=== PATIENT | male | born 1935 | race Hispanic/Latino ===

== ENCOUNTER → 2017-05-20 | Outpatient (CLI) | payer OTHER ==
[~2017-05-20] MED LIST: AEC81 PO; ALBU2.5V2 IH; INSU100V12 SQ; LISI-617 PO; LISI40TA4 PO; METF500T6 PO; NAPR-1023 PO; PANT40TA PO; PRED10TA3 PO; REGADENOSON 0.4 MG/5 ML PF SYG IVP SCH; SIMV20TA6 PO; WARF-57 PO
== END | disposition home or self-care (01) ==
LOC: SHCH 08:20
PROVIDERS: ATTEND Internal Medicine Cardiovascular Disease
DX: I48.0 Paroxysmal atrial fibrillation (principal)
CPT/HCPCS: 78452; 93017; 96374; A9500 ×2; J2785

== ENCOUNTER 2019-01-22 13:42 | Observation (INO) | payer OTHER ==
[~2019-01-22] VITALS: Ht 154.9 cm; Wt 74.1 kg
[~2019-01-22 13:42] MED LIST changes: -AEC81 PO; -ALBU2.5V2 IH; +LEVO500T2 PO; +LEVO50TA11 PO; -LISI40TA4 PO; +METF-444 PO; -METF500T6 PO; +METH4TAB3 PO; -NAPR-1023 PO; -PANT40TA PO; -PRED10TA3 PO; -REGADENOSON 0.4 MG/5 ML PF SYG IVP SCH; -WARF-57 PO
[2019-01-22 14:11] LABS: BASOPHILS % (AUTO) 0.5 % (0.0-5.0); HEMATOCRIT 38.4 % (42-54); LYMPHOCYTES % (AUTO) 19.6 % (21.0-51.0); MEAN CORPUSCULAR HEMOGLOBIN 31.9 pg (27.0-33.0); MEAN CORPUSCULAR HGB CONC 34.8 g/dL (32.0-36.0); MEAN CORPUSCULAR VOLUME 91.8 fL (79-99); MONOCYTES % (AUTO) 7.3 % (3.0-13.0); NEUTROPHILS % (AUTO) 65.6 % (40.0-77.0); PLATELET COUNT (AUTO) 233 K/uL (130-400); RED BLOOD CELL COUNT(AUTO) 4.18 MIL/uL (4.50-6.20); RED CELL DISTRIBUTION WIDTH 13.7 % (11.0-15.5); WHITE BLOOD COUNT (AUTO) 8.4 K/uL (4.8-10.8)
[2019-01-22 14:22] LABS: POTASSIUM 4.1 mmol/L (3.5-5.1)
[2019-01-22 14:24] LABS: INR 0.93 (0.85-1.15); PARTIAL THROMBOPLASTIN TIME 27.4 SEC (26.3-35.5); PROTHROMBIN TIME 9.8 SEC (9.6-11.6)
[2019-01-22 14:27] LABS: ALBUMIN 3.2 g/dL (3.5-5.0); BILIRUBIN,TOTAL 0.3 mg/dL (0.2-1.0); TOTAL PROTEIN, SERUM 7.6 g/dL (6.0-8.3)
[2019-01-22] MEDS ORDERED: ASPIRIN 325 MG TABLET ONE (14:55)
[2019-01-22] MEDS ORDERED: NITROGLYCERIN 1GM/1 INCH PACKET TD ONE (14:56)
[2019-01-22] MEDS ORDERED: IPRATROPIUM/ALBUTEROL SULFATE 3 ML SOLUTION IH ONE (15:12)
[2019-01-22] MEDS: ENOXAPARIN SODIUM 40 MG/0.4 ML SYRINGE SQ SCH (16:17)
[2019-01-22] MEDS: INSULIN R PO SS1 SQ SCH ×2 (16:30→22:39)
[2019-01-22] MEDS ORDERED: VANCOMYCIN PROTOCOL PER PHARMACY IV SCH (16:30)
[2019-01-22] MEDS ORDERED: VANCOMYCIN 1GM+NS 250ML 250 ML IV ONE (16:45)
[2019-01-22] MEDS: ZOSYN 3.375GM+NS 50ML 50 ML IV SCH (17:00)
[2019-01-22] MEDS: VANCOMYCIN 1GM+NS 250ML 250 ML IV SCH (18:00)
[2019-01-22] MEDS: METHYLPREDNISOLONE SOD SUCC 40MG/ML 1ML IVP SCH (18:00)
[2019-01-22] MEDS: IPRATROPIUM/ALBUTEROL SULFATE 3 ML SOLUTION IH SCH ×2 (18:39→23:50)
[2019-01-22] MEDS ORDERED: ZOSYN 3.375GM+NS 50ML 50 ML IV ONE (19:24)
[2019-01-22] MEDS ORDERED: METHYLPREDNISOLONE SOD SUCC 40MG/ML 1ML ONE (19:24)
[2019-01-22 21:25] VITALS: BP 174/84
[2019-01-22 22:12] LABS: CREATINE KINASE, TOTAL 102 U/L (21-232); MYOGLOBIN 89 ng/mL (10-92); TROPONIN I < 0.04 ng/mL (0.00-0.06)
[2019-01-22] MEDS: PANTOPRAZOLE SODIUM 40 MG TABLET.DR PO SCH (22:34)
[2019-01-22] MEDS ORDERED: NAPR-1023 PO (23:04)
[2019-01-22] MEDS ORDERED: LEVO25TA54 PO (23:07)
[2019-01-22] MEDS ORDERED: [UNRECOGNIZED DRUG - CODE] PO (23:12)
[2019-01-23] VITALS (8 sets, daily range): BP systolic 127–151; BP diastolic 61–79
[2019-01-23] MEDS: ZOSYN 3.375GM+NS 50ML 50 ML IV SCH ×3 (00:42→16:58)
[2019-01-23] MEDS: METHYLPREDNISOLONE SOD SUCC 40MG/ML 1ML IVP SCH ×5 (00:44→23:24)
[2019-01-23 05:10] LABS: HEMATOCRIT 36.6 % (42-54); MEAN CORPUSCULAR HEMOGLOBIN 31.7 pg (27.0-33.0); MEAN CORPUSCULAR HGB CONC 33.9 g/dL (32.0-36.0); MEAN CORPUSCULAR VOLUME 93.3 fL (79-99); NUCLEATED RED BLOOD CELLS 0.1 % (0.0-0.19); PLATELET COUNT (AUTO) 213 K/uL (130-400); RED BLOOD CELL COUNT(AUTO) 3.92 MIL/uL (4.50-6.20); RED CELL DISTRIBUTION WIDTH 13.8 % (11.0-15.5); WHITE BLOOD COUNT (AUTO) 8.3 K/uL (4.8-10.8)
[2019-01-23 05:48] LABS: CARBON DIOXIDE 26 mmol/L (21-32); CHLORIDE 104 mmol/L (101-111); CREATINE KINASE, TOTAL 95 U/L (21-232); CREATININE 1.2 mg/dL (0.5-1.5); GLOMERULAR FILTR. RATE CALC 62 mL/min (>60); GLUCOSE,RANDOM 257 mg/dL (70-105); MYOGLOBIN 80 ng/mL (10-92); PHOSPHORUS 2.7 mg/dL (2.5-4.9); POTASSIUM 4.2 mmol/L (3.5-5.1); SODIUM SERUM 137 mmol/L (136-145); UREA NITROGEN, BLOOD 23 mg/dL (7-18)
[2019-01-23 06:05] LABS: TROPONIN I < 0.04 ng/mL (0.00-0.06)
[2019-01-23] MEDS: IPRATROPIUM/ALBUTEROL SULFATE 3 ML SOLUTION IH SCH ×4 (06:43→23:07)
[2019-01-23] MEDS: BUDESONIDE 0.5 MG/2 ML INH IH SCH ×2 (06:52→18:18)
[2019-01-23] MEDS: ENOXAPARIN SODIUM 40 MG/0.4 ML SYRINGE SQ SCH (08:40)
[2019-01-23] MEDS: VANCOMYCIN 1GM+NS 250ML 250 ML IV SCH ×2 (08:41→20:03)
[2019-01-23] MEDS: INSULIN R PO SS1 SQ SCH ×4 (08:46→22:22)
[2019-01-23] MEDS: PANTOPRAZOLE SODIUM 40 MG TABLET.DR PO SCH (08:47)
[2019-01-23] MEDS ORDERED: POTASSIUM CHLORIDE 10% ELIXIR 20 MEQ/15 ML UDCUP PO PRN (10:00)
[2019-01-23] MEDS ORDERED: MAGNESIUM 2GM PREMIX 50ML 50 ML IV PRN (10:00)
[2019-01-23] MEDS ORDERED: LIDOCAINE HCL-MPF 1% 2ML VIAL IV PRN (10:00)
[2019-01-23] MEDS ORDERED: POTASSIUM CHLORIDE 20MEQ/100ML 100 ML IV PRN (10:00)
[2019-01-23] MEDS ORDERED: POTASSIUM CHLORIDE 20 MEQ ERTAB PO PRN (10:00)
[2019-01-23] MEDS ORDERED: MECL-111 PO (10:15)
[2019-01-23] MEDS ORDERED: FLUT1AER IH (10:15)
[2019-01-23] MEDS ORDERED: LEVO50TA11 PO (10:17)
[2019-01-23] MEDS ORDERED: MECLIZINE HCL 25 MG TABLET PO PRN (10:30)
[2019-01-23] MEDS: INSULIN GLARGINE 100 UNITS/ML 10 ML VIAL SQ SCH (12:26)
--- NOTE | 2019-01-23 12:31 | NUR ---
DCP CM met with pt discussed dc plans. Pt is independent prior to admission, lives at home with friend Jessica Nunez. P thas a walker, oxygen equipments through [facility], nebulizer machine, active w/[facility], provider 21hrs/wk. Denies any other equipments/services. Pt feels safe to go back home, friend Jessica able to assist with transportation and needs as necessary. Declined placement, prefers to go back home. DC plan to home once stable. CM to cont to follow up. Addendum: 01/23/19 at 1233 by LA KATE LVN CM Amended: Links added.
[2019-01-23] MEDS ORDERED: SIMVASTATIN 20 MG TABLET PO SCH (21:00)
[2019-01-24] MEDS: ZOSYN 3.375GM+NS 50ML 50 ML IV SCH ×2 (01:38→09:02)
[2019-01-24 03:00] VITALS: BP 147/77
[2019-01-24] MEDS: METHYLPREDNISOLONE SOD SUCC 40MG/ML 1ML IVP SCH ×2 (05:55→12:42)
[2019-01-24] MEDS: IPRATROPIUM/ALBUTEROL SULFATE 3 ML SOLUTION IH SCH ×3 (06:14→18:10)
[2019-01-24] MEDS: BUDESONIDE 0.5 MG/2 ML INH IH SCH ×2 (06:14→18:10)
[2019-01-24] MEDS ORDERED: LEVOTHYROXINE 50 MCG TABLET PO SCH (06:30)
[2019-01-24] MEDS: INSULIN R PO SS1 SQ SCH ×3 (06:49→16:40)
[2019-01-24] MEDS ORDERED: LEVOTHYROXINE 25 MCG TABLET PO SCH (07:30)
[2019-01-24 08:00] VITALS: BP 150/76
[2019-01-24] MEDS ORDERED: FLUTICASONE/VILANTEROL 1 EACH AER.POW.BA IH SCH (09:00)
[2019-01-24] MEDS ORDERED: LISINOPRIL 5 MG TABLET PO SCH (09:00)
[2019-01-24] MEDS: VANCOMYCIN 1GM+NS 250ML 250 ML IV SCH (09:03)
[2019-01-24] MEDS: PANTOPRAZOLE SODIUM 40 MG TABLET.DR PO SCH (09:04)
[2019-01-24] MEDS: ENOXAPARIN SODIUM 40 MG/0.4 ML SYRINGE SQ SCH (09:06)
[2019-01-24] MEDS: INSULIN GLARGINE 100 UNITS/ML 10 ML VIAL SQ SCH (10:16)
[2019-01-24 12:00] VITALS: BP 148/71
[2019-01-24 16:00] VITALS: BP 152/73
== END 2019-01-24 18:45 | disposition home or self-care (01) ==
LOC: EDH 13:42 → EDHIP 15:53 → 3DH 21:00
PROVIDERS: ADMIT Internal Medicine Critical Care Medicine; ATTEND Internal Medicine Critical Care Medicine
DX: J44.1 Chronic obstructive pulmonary disease with (acute) exacerbation (principal); I45.10 Unspecified right bundle-branch block; I49.8 Other specified cardiac arrhythmias; R94.31 Abnormal electrocardiogram [ECG] [EKG]; G47.30 Sleep apnea, unspecified; I10 Essential (primary) hypertension; E11.9 Type 2 diabetes mellitus without complications; E78.5 Hyperlipidemia, unspecified; I25.10 Atherosclerotic heart disease of native coronary artery without angina pectoris; I48.91 Unspecified atrial fibrillation; E03.9 Hypothyroidism, unspecified; Z99.81 Dependence on supplemental oxygen; Z87.891 Personal history of nicotine dependence; Z79.51 Long term (current) use of inhaled steroids; Z79.4 Long term (current) use of insulin; Z79.890 Hormone replacement therapy; Z79.82 Long term (current) use of aspirin; Z79.899 Other long term (current) drug therapy
CPT/HCPCS: 36415 ×3; 70486; 71045 ×2; 80048; 80053; 82550 ×3; 82948 ×9; 83735 ×2; 83874 ×2; 83880; 84100; 84484 ×3; 85025; 85027; 85610; 85730; 93005; 93306; 94640 ×14; 94664; 96365; 96366 ×4; 96367; 96368; 96372 ×3; 96375; 96376 ×2; 99284; G0378 ×46; J1650 ×2; J1815 ×8; J2543 ×7; J2920 ×8; J3370 ×5; J3475

== ENCOUNTER 2019-02-17 17:38 | Inpatient (IN) | payer OTHER ==
[~2019-02-17] VITALS: Ht 157.5 cm; Wt 72.6 kg
[~2019-02-17 17:38] MED LIST changes: +FLUT1AER IH; -LEVO500T2 PO; +MECL-111 PO; -METH4TAB3 PO; +NAPR-1023 PO; +SIMV-43 PO; -SIMV20TA6 PO; +[UNRECOGNIZED DRUG - CODE] PO
[2019-02-17 18:31] LABS: BASOPHILS % (AUTO) 0.3 % (0.0-5.0); EOSINOPHILS % (AUTO) 6.9 % (0.0-8.0); HEMATOCRIT 37.6 % (42-54); LYMPHOCYTES % (AUTO) 10.9 % (21.0-51.0); MEAN CORPUSCULAR HEMOGLOBIN 32.1 pg (27.0-33.0); MEAN CORPUSCULAR HGB CONC 34.2 g/dL (32.0-36.0); MEAN CORPUSCULAR VOLUME 93.9 fL (79-99); MONOCYTES % (AUTO) 6.4 % (3.0-13.0); NEUTROPHILS % (AUTO) 75.5 % (40.0-77.0); PLATELET COUNT (AUTO) 235 K/uL (130-400); RED CELL DISTRIBUTION WIDTH 13.9 % (11.0-15.5); WHITE BLOOD COUNT (AUTO) 11.5 K/uL (4.8-10.8)
[2019-02-17 18:47] LABS: INR 0.95 (0.85-1.15); PARTIAL THROMBOPLASTIN TIME 27.3 SEC (26.3-35.5)
[2019-02-17 18:54] LABS: CREATININE 1.1 mg/dL (0.5-1.5); POTASSIUM 4.9 mmol/L (3.5-5.1)
[2019-02-17 18:58] LABS: ALBUMIN 3.2 g/dL (3.5-5.0); BILIRUBIN,TOTAL 0.3 mg/dL (0.2-1.0); TOTAL PROTEIN, SERUM 7.3 g/dL (6.0-8.3)
[2019-02-17] MEDS ORDERED: ACETAMINOPHEN EXTRA STRENGTH 500 MG TABLET ONE (20:46)
[2019-02-17] MEDS ORDERED: LABETALOL 20 MG/4 ML DISP.SYRIN IV ONE (22:04)
[2019-02-17 22:13] LABS: APPEARANCE,URINE Clear (CLEAR); BILIRUBIN,URINE Negative (NEGATIVE); COLOR,URINE Yellow (YELLOW); GLUCOSE, URINE (UA) Negative (NEGATIVE); KETONES,URINE Negative (NEGATIVE); LEUKOCYTE ESTERASE ,URINE Small (NEGATIVE); NITRATE,URINE Negative (NEGATIVE); OCCULT BLOOD,URINE Negative (NEGATIVE); PROTEIN,URINE Trace mg/dL (NEGATIVE); UROBILINOGEN,URINE 0.2 mg/dL (0.2-1.0)
[2019-02-17 22:25] LABS: BACTERIA,URINE None Seen /HPF (None Seen); RBC,URINE None Seen /HPF (0-1); SQUAMOUS EPITHELIAL CELL,UR None Seen /HPF (0-2); WBC,URINE 0-1 /HPF (0-1)
[2019-02-17] MEDS ORDERED: ONDANSETRON HCL 4 MG/2 ML VIAL IVP PRN (23:15)
[2019-02-17] MEDS ORDERED: MORPHINE SULFATE 2 MG/ML 1ML SYG IVP PRN (23:15)
[2019-02-17] MEDS ORDERED: MORPHINE SULFATE 2 MG/ML 1ML SYG ONE (23:21)
[2019-02-17 23:55] VITALS: BP 135/76
--- NOTE | 2019-02-17 23:55 | NUR ---
ADMISSION. PT ADMITTED INTO ROOM 409 FROM ER. PT AWAKE, ALERT AND RESPONSIVE, C/O PAIN UPON MOVEMENT (WAS MEDICATED 30MIN AGO IN ER FOR PAIN). PT WITH HISTORY OF DEMENTIA, AND SOME SPEECH DISABILITY, PT ROOMMATE AT BEDSIDE TO PROVIDE PT HISTORY. PT AND PT ROOMMATE ORIENTED TO ROOM, CALL CUMMINGS WITHIN REACH, BED IN LOWEST POSITION, BED ALARM IN PLACE, WILL CONTINUE TO MONITOR. Addendum: 02/18/19 at 0056 by KEN WALKER RN Amended: Links added.
[2019-02-18] MEDS: METHYLPREDNISOLONE SOD SUCC 40MG/ML 1ML IVP SCH ×3 (00:09→16:45)
[2019-02-18 03:42] VITALS: BP 169/78
[2019-02-18 08:00] VITALS: BP 170/108
[2019-02-18] MEDS ORDERED: LORA10TA7 PO (08:31)
--- NOTE | 2019-02-18 10:00 | NUR ---
CM MET W PATIENT ALONE, [place], EXTERMELY DIFFICULT TO UNDERSTAND SPEECH, MAKES GESTUERS BUT CANNOT COMMUNICATE. CALL TO NUMBER ON FACE SHEET MELIDA LANDONDIVAR, FRIEND, NO ANSWER, NO WAY TO LEAVE MESSAGE. WILL TRY AGAIN LATER Addendum: 02/18/19 at 1800 by CARLITO MADDEN RN CM Amended: Links added.
[2019-02-18] MEDS ORDERED: ACETAMINOPHEN 325 MG TAB PO PRN ×2 (10:15)
[2019-02-18] MEDS ORDERED: GUAIFENESIN-DM 200/20 MG 10 ML PO PRN (10:15)
[2019-02-18] MEDS ORDERED: POTASSIUM CHLORIDE 20MEQ/100ML 100 ML IV PRN ×2 (10:15)
[2019-02-18] MEDS ORDERED: DiphenhydrAMINE HCL 50 MG/ML VIAL IV PRN (10:15)
[2019-02-18] MEDS ORDERED: MAGNESIUM 2GM PREMIX 50ML 50 ML IV PRN (10:15)
[2019-02-18] MEDS ORDERED: DIPHENHYDRAMINE HCL 25 MG CAPSULE PO PRN (10:15)
[2019-02-18] MEDS ORDERED: HYDRALAZINE HCL 20 MG/ML VIAL IV PRN (10:15)
[2019-02-18] MEDS ORDERED: ONDANSETRON HCL 4 MG/2 ML VIAL IV PRN (10:15)
[2019-02-18] MEDS ORDERED: MAG HYDROX/AL HYDROX/SIMETH ES 30 ML SUSP UDCUP PO PRN (10:15)
[2019-02-18] MEDS ORDERED: ZOLPIDEM TARTRATE 5 MG TAB PO PRN (10:15)
[2019-02-18] MEDS ORDERED: POTASSIUM CHLORIDE 20 MEQ ERTAB PO PRN (10:15)
[2019-02-18] MEDS ORDERED: NITROGLYCERIN 0.4 MG SL TAB SL PRN (10:15)
[2019-02-18 11:38] VITALS: BP 119/75
--- NOTE | 2019-02-18 13:10 | NUR ---
DYSPHAGIA EVAL COMPLETED. -S/S OF ASPIRATION. RECOMMEND MECHANICAL SOFT/CHOPPED, THIN LIQUIDS; PILLS WHOLE WITH LIQUIDS. Addendum: 02/18/19 at 1311 by LISANDRO ZHANG, [facility] Amended: Links added.
[2019-02-18] MEDS: INSULIN HUMULIN R 100 UNIT/ML 3ML SQ SCH ×3 (13:25→21:15)
[2019-02-18] MEDS: IPRATROPIUM/ALBUTEROL SULFATE 3 ML SOLUTION IH SCH ×3 (13:51→22:20)
--- NOTE | 2019-02-18 15:00 | NUR ---
REFERRAL MET Rosie UMANA IN [facility] - TALKED OT HIM ABOUT THE DISCREPANCY IN THE CT NECK & CT CHEST REPORTS DRFabi SIX NOTES REVIEWED, CLARIFIED NO C7 FRACTURE TALKED OT PATIENT GAVE ORDERS FOR SNF, FAMILY AT BEDSIDE, HALF BROTHER DOMINGO CARDONA [phone] STATES PT LIVES WITH HIS PROVIDER/ GIRLFRIEND FOR MANY YEARS, THEY LOOK AFTER EACH OTHER, SHE DOES GET PROVIDER HOURS, THEY DO NOT KNOW HOW MANY HOME IS SAFE AND ACCESSIBLE, NO STAIRS, PT HAS ROLLING WALKER, BUT NO SHOWER CHAIR, JUST GRAB BARS IN THE SHOWER. PT IS VERY UNINTELLIGIBLE, EVNE TO HIS FAMILY- VERY [place]. THE TERM DEMENTIA WAS USED AND RONAL STATES HE HAS NO DEMENTIA. THEY WANT OT GO TO [facility] ON DISCHARGE [facility], REFERRAL SENT Addendum: 02/18/19 at 1808 by CARLITO MADDEN RN CM Amended: Links added.
[2019-02-18 16:00] VITALS: BP 108/59
[2019-02-18 20:00] VITALS: BP 136/68
[2019-02-18] MEDS ORDERED: INSULIN GLARGINE 100 UNITS/ML 10 ML VIAL SQ SCH (21:00)
[2019-02-18] MEDS: LORATADINE 10 MG TABLET PO SCH (21:04)
[2019-02-18] MEDS: SIMVASTATIN 20 MG TABLET PO SCH (21:04)
[2019-02-19] VITALS (7 sets, daily range): BP systolic 106–134; BP diastolic 48–63
[2019-02-19] MEDS: METHYLPREDNISOLONE SOD SUCC 40MG/ML 1ML IVP SCH ×2 (00:22→08:52)
[2019-02-19] MEDS: IPRATROPIUM/ALBUTEROL SULFATE 3 ML SOLUTION IH SCH ×6 (01:59→22:10)
[2019-02-19 05:14] LABS: HEMATOCRIT 37.2 % (42-54); LYMPHOCYTES % (AUTO) 2.1 % (21.0-51.0); MEAN CORPUSCULAR HEMOGLOBIN 31.4 pg (27.0-33.0); MEAN CORPUSCULAR HGB CONC 33.4 g/dL (32.0-36.0); MONOCYTES % (AUTO) 2.4 % (3.0-13.0); NEUTROPHILS % (AUTO) 95.5 % (40.0-77.0); NUCLEATED RED BLOOD CELLS 0.1 % (0.0-0.19); PLATELET COUNT (AUTO) 243 K/uL (130-400); RED BLOOD CELL COUNT(AUTO) 3.96 MIL/uL (4.50-6.20); RED CELL DISTRIBUTION WIDTH 13.9 % (11.0-15.5); WHITE BLOOD COUNT (AUTO) 14.5 K/uL (4.8-10.8)
[2019-02-19 05:34] LABS: B-TYPE NATRIURETIC PEPTIDE 48 pg/mL (0-100)
[2019-02-19 05:38] LABS: ALBUMIN 2.8 g/dL (3.5-5.0); BILIRUBIN,TOTAL 0.3 mg/dL (0.2-1.0); CREATININE 1.7 mg/dL (0.5-1.5); MAGNESIUM 2.2 mg/dL (1.80-2.40); PHOSPHORUS 2.6 mg/dL (2.5-4.9); POTASSIUM 3.8 mmol/L (3.5-5.1); TOTAL PROTEIN, SERUM 6.8 g/dL (6.0-8.3)
[2019-02-19] MEDS: INSULIN HUMULIN R 100 UNIT/ML 3ML SQ SCH ×3 (06:02→18:17)
[2019-02-19] MEDS: LEVOTHYROXINE 50 MCG TABLET PO SCH (08:52)
[2019-02-19] MEDS: METFORMIN HCL 500 MG TABLET PO SCH (08:52)
[2019-02-19] MEDS: LISINOPRIL 5 MG TABLET PO SCH (08:53)
[2019-02-19] MEDS ORDERED: FLUTICASONE/VILANTEROL 1 EACH AER.POW.BA IH SCH (09:00)
[2019-02-19] MEDS ORDERED: CEFTRIAXONE SODIUM 2 GM VIAL IVP SCH (10:45)
[2019-02-19] MEDS ORDERED: CEFTRIAXONE SODIUM 1 GM ONE (11:42)
[2019-02-19] MEDS: CEFTRIAXONE SODIUM 1 GM IVP SCH (11:45)
--- NOTE | 2019-02-19 13:25 | NUR ---
FOLLOW UP. Pt SEATED IN CHAIR PARTICIPATING IN P.O. INDEPENDENTLY. Pt WITH NO OVERT S/S OF ASPIRATION DURING THE MEAL. Pt TOLERATING CURRENT DIET. SKILLED SPEECH THERAPY IS NOT RECOMMENDED AT THIS TIME. Addendum: 02/19/19 at 1331 by LISANDRO ZHANG, [facility] ST Amended: Links added.
--- NOTE | 2019-02-19 13:55 | NUR ---
ASKED REGARDING ASA 81MG PO DAILY PER DR. MOROCHO RECOMMENDATIONS ASKED DEION VERNON. SHE ASKED ABOUT EEG DONE ALREADY. INFORMED HER IT WAS IN PROGRESS. SHE SAID OK. WILL CONTINUE TO FOLLOW UP FOR OK TO START AFTER EEG RESULTS OUT.
--- NOTE | 2019-02-19 17:15 | NUR ---
AUTH RECD FOR [facility] PENDING EEG TO BE READ IN AM CHART TAGGED , PRIMARY RN AWARE
[2019-02-19] MEDS ORDERED: INSULIN GLARGINE 100 UNITS/ML 10 ML VIAL SQ SCH (21:00)
[2019-02-19] MEDS: SIMVASTATIN 20 MG TABLET PO SCH (22:03)
[2019-02-19] MEDS: LORATADINE 10 MG TABLET PO SCH (22:03)
[2019-02-20] MEDS: INSULIN HUMULIN R 100 UNIT/ML 3ML SQ SCH ×4 (01:35→16:58)
[2019-02-20] MEDS: IPRATROPIUM/ALBUTEROL SULFATE 3 ML SOLUTION IH SCH ×4 (01:50→13:40)
[2019-02-20 03:00] VITALS: BP 110/67
[2019-02-20 03:53] LABS: BASOPHILS % (AUTO) 0.1 % (0.0-5.0); HEMATOCRIT 34.3 % (42-54); LYMPHOCYTES % (AUTO) 4.6 % (21.0-51.0); MEAN CORPUSCULAR HEMOGLOBIN 31.4 pg (27.0-33.0); MEAN CORPUSCULAR VOLUME 92.2 fL (79-99); MONOCYTES % (AUTO) 6.1 % (3.0-13.0); NEUTROPHILS % (AUTO) 89.2 % (40.0-77.0); PLATELET COUNT (AUTO) 249 K/uL (130-400); RED BLOOD CELL COUNT(AUTO) 3.72 MIL/uL (4.50-6.20); WHITE BLOOD COUNT (AUTO) 18.2 K/uL (4.8-10.8)
[2019-02-20 04:07] LABS: POTASSIUM 3.6 mmol/L (3.5-5.1)
[2019-02-20 04:16] LABS: CREATININE 1.1 mg/dL (0.5-1.5); MAGNESIUM 1.9 mg/dL (1.80-2.40)
[2019-02-20 07:00] VITALS: BP 134/62
[2019-02-20] MEDS: METFORMIN HCL 500 MG TABLET PO SCH (07:37)
[2019-02-20] MEDS: LEVOTHYROXINE 50 MCG TABLET PO SCH (07:38)
[2019-02-20] MEDS: LISINOPRIL 5 MG TABLET PO SCH (07:38)
--- NOTE | 2019-02-20 08:07 | NUR ---
ASSESSMENT PT IS AWAKE, ALERT AND ORIENTED X3, VOICES NO COMPLAINTS OF PAIN, DENIES VISUAL DISTURBANCES, UPPER EXTREMITIES WEAK TO LOWER AND STRONG TO UPPER, SPEECH AT TIMES CAN BE UNDERSTOOD, STATES HE BLAMES HIS TONGUE MOTION. PLAN OF CARE DISCUSSED, CALL CUMMINGS WITHIN REACH.
[2019-02-20] MEDS: POTASSIUM CHLORIDE 10% ELIXIR 20 MEQ/15 ML UDCUP PO PRN ×2 (08:26→12:22)
[2019-02-20] MEDS: LACTULOSE 20 GM/30 ML UDCUP PO PRN ×2 (09:46→17:07)
--- NOTE | 2019-02-20 10:00 | NUR ---
cm note spoke to jeana with [facility] and states pt is approved updated charge nurse robin, and nurse.
[2019-02-20 12:11] VITALS: BP 128/66
[2019-02-20] MEDS: CEFTRIAXONE SODIUM 1 GM IVP SCH (12:21)
[2019-02-20] MEDS ORDERED: AEC81 PO (13:41)
[2019-02-20 16:00] VITALS: BP 108/52
--- NOTE | 2019-02-20 17:28 | NUR ---
d/c report called to liz at [facility] they will be picking pt up they are aware he needs o2 2l nc; i have given pt lactulose with prune juice to assist with bowel movement.
--- NOTE | 2019-02-20 18:02 | NUR ---
d/c instructions given to pt and his all in agreement with transfer to [facility]; d/c paperwork faxed to [facility]. iv access removed.
[2019-02-21] MEDS ORDERED: ASPIRIN 81MG TAB.CHEW PO SCH (09:00)
== END 2019-02-20 18:24 | DRG 552 ==
LOC: EDH 17:38 → OBSVTOIN 21:49 → EDHIP 21:49 → INTOOBSV 21:49 → 4BH 23:06
PROVIDERS: ADMIT Internal Medicine; ATTEND Internal Medicine
PROC: 4A10X4Z Monitoring of Central Nervous Electrical Activity, External Approach (ICD-10-PCS; principal; 2019-02-18)
DX: S22.069A Unspecified fracture of T7-T8 vertebra, initial encounter for closed fracture (principal); I69.351 Hemiplegia and hemiparesis following cerebral infarction affecting right dominant side; J44.1 Chronic obstructive pulmonary disease with (acute) exacerbation; G47.33 Obstructive sleep apnea (adult) (pediatric); Z99.81 Dependence on supplemental oxygen; I48.91 Unspecified atrial fibrillation; I10 Essential (primary) hypertension; E03.9 Hypothyroidism, unspecified; E78.5 Hyperlipidemia, unspecified; E11.9 Type 2 diabetes mellitus without complications; R55 Syncope and collapse; I25.10 Atherosclerotic heart disease of native coronary artery without angina pectoris; F03.90 Unspecified dementia, unspecified severity, without behavioral disturbance, psychotic disturbance, mood disturbance, and anxiety; W18.39XA Other fall on same level, initial encounter; R29.810 Facial weakness; Z86.718 Personal history of other venous thrombosis and embolism; Y93.89 Activity, other specified; Y92.89 Other specified places as the place of occurrence of the external cause; Y99.8 Other external cause status
CPT/HCPCS: 36415; 70450; 71250; 72125; 74176; 80048; 80053; 81001; 82550; 82948; 83690; 83735; 83880; 84100; 84484; 85025; 85610; 85730; 92610; 93005; 93306; 93880; 94640; 94664; 95816; 97039; G0378; J0360; J0696; J1815; J2920; J3475

== ENCOUNTER 2019-05-26 13:39 | Observation (INO) | payer OTHER ==
[~2019-05-26] VITALS: Ht 170.2 cm; Wt 74.4 kg
[~2019-05-26 13:39] MED LIST changes: +AEC81 PO; +LORA10TA7 PO; -MECL-111 PO; -NAPR-1023 PO; -[UNRECOGNIZED DRUG - CODE] PO
[2019-05-26 14:00] LABS: BASOPHILS % (AUTO) 0.3 % (0.0-5.0); EOSINOPHILS % (AUTO) 2.8 % (0.0-8.0); LYMPHOCYTES % (AUTO) 10.3 % (21.0-51.0); MEAN CORPUSCULAR HEMOGLOBIN 30.3 pg (27.0-33.0); MEAN CORPUSCULAR HGB CONC 32.8 g/dL (32.0-36.0); MEAN CORPUSCULAR VOLUME 92.4 fL (79-99); MONOCYTES % (AUTO) 4.2 % (3.0-13.0); NEUTROPHILS % (AUTO) 82.1 % (40.0-77.0); PLATELET COUNT (AUTO) 218 K/uL (130-400); RED BLOOD CELL COUNT(AUTO) 4.22 MIL/uL (4.50-6.20); RED CELL DISTRIBUTION WIDTH 12.9 % (11.0-15.5); WHITE BLOOD COUNT (AUTO) 10.8 K/uL (4.8-10.8)
[2019-05-26] MEDS ORDERED: ASPIRIN 325 MG TABLET ONE (14:03)
[2019-05-26] MEDS ORDERED: NITROGLYCERIN 0.4 MG SL TAB SL ONE (14:03)
[2019-05-26 14:11] LABS: INR 0.94 (0.85-1.15); PARTIAL THROMBOPLASTIN TIME 25.7 SEC (26.3-35.5); POTASSIUM 4.6 mmol/L (3.5-5.1); PROTHROMBIN TIME 9.9 SEC (9.6-11.6)
[2019-05-26 14:16] LABS: ALBUMIN 3.1 g/dL (3.5-5.0); BILIRUBIN,TOTAL 0.2 mg/dL (0.2-1.0); TOTAL PROTEIN, SERUM 7.5 g/dL (6.0-8.3)
[2019-05-26] MEDS ORDERED: SODIUM CHLORIDE 0.9% 1000ML 1,000 ML IV ONE (15:10)
[2019-05-26] MEDS ORDERED: IOHEXOL-350 75 ML VIAL IV ONE (15:14)
[2019-05-26] MEDS: LACTATED RINGERS 1000ML 1,000 ML IV SCH (20:11)
[2019-05-26] MEDS ORDERED: DIPHENHYDRAMINE HCL 25 MG CAPSULE PO PRN (20:15)
[2019-05-26] MEDS ORDERED: ACETAMINOPHEN-CODEINE 300/30MG TAB PO PRN ×2 (20:15)
[2019-05-26] MEDS ORDERED: NITROGLYCERIN 0.4 MG SL TAB SL PRN (20:15)
[2019-05-26] MEDS ORDERED: PANTOPRAZOLE SODIUM 40 MG TABLET.DR ONE (20:36)
[2019-05-26] MEDS ORDERED: LACTATED RINGERS 1000ML 1,000 ML IV ONE (20:37)
[2019-05-26] MEDS ORDERED: SIMVASTATIN 10 MG TABLET ONE (20:52)
[2019-05-26] MEDS ORDERED: LORATADINE 10 MG TABLET ONE (20:52)
[2019-05-26] MEDS: LORATADINE 10 MG TABLET PO SCH (21:00)
[2019-05-26] MEDS: SIMVASTATIN 20 MG TABLET PO SCH (21:00)
[2019-05-26 21:20] LABS: HEMATOCRIT 37.3 % (42-54); MEAN CORPUSCULAR HEMOGLOBIN 30.2 pg (27.0-33.0); MEAN CORPUSCULAR VOLUME 91.6 fL (79-99); PLATELET COUNT (AUTO) 212 K/uL (130-400); RED BLOOD CELL COUNT(AUTO) 4.07 MIL/uL (4.50-6.20); RED CELL DISTRIBUTION WIDTH 12.8 % (11.0-15.5); WHITE BLOOD COUNT (AUTO) 8.2 K/uL (4.8-10.8)
[2019-05-26 21:35] LABS: CARBON DIOXIDE 30 mmol/L (21-32); CHLORIDE 108 mmol/L (101-111); CREATINE KINASE, TOTAL 144 U/L (21-232); GLOMERULAR FILTR. RATE CALC 76 mL/min (>60); GLUCOSE,RANDOM 183 mg/dL (70-105); MYOGLOBIN 126 ng/mL (10-92); PHOSPHORUS 2.5 mg/dL (2.5-4.9); POTASSIUM 4.2 mmol/L (3.5-5.1); SODIUM SERUM 143 mmol/L (136-145); THYROID STIMULATING HORMONE 3.59 uIU/mL (0.36-3.74); TROPONIN I < 0.04 ng/mL (0.00-0.06); UREA NITROGEN, BLOOD 17 mg/dL (7-18)
[2019-05-26] MEDS: IPRATROPIUM/ALBUTEROL SULFATE 3 ML SOLUTION IH SCH (22:04)
[2019-05-27] MEDS: IPRATROPIUM/ALBUTEROL SULFATE 3 ML SOLUTION IH SCH ×6 (01:09→21:06)
[2019-05-27] MEDS ORDERED: IPRATROPIUM/ALBUTEROL SULFATE 3 ML SOLUTION IH ONE ×2 (05:42→09:10)
[2019-05-27] MEDS ORDERED: BUDESONIDE 0.5 MG/2 ML INH IH ONE (05:42)
[2019-05-27] MEDS: BUDESONIDE 0.5 MG/2 ML INH IH SCH ×2 (05:43→19:21)
[2019-05-27 05:55] LABS: CREATINE KINASE, TOTAL 149 U/L (21-232); MYOGLOBIN 66 ng/mL (10-92); TROPONIN I < 0.04 ng/mL (0.00-0.06)
[2019-05-27] MEDS: LEVOTHYROXINE 50 MCG TABLET PO SCH (07:00)
[2019-05-27] MEDS: METFORMIN HCL 500 MG TABLET PO SCH (08:00)
[2019-05-27] MEDS ORDERED: LEVOTHYROXINE 25 MCG TABLET ONE (08:18)
[2019-05-27] MEDS ORDERED: ENOXAPARIN SODIUM 30 MG/0.3 ML SQ ONE (08:28)
[2019-05-27] MEDS ORDERED: METFORMIN HCL 500 MG TABLET ONE (08:28)
[2019-05-27] MEDS ORDERED: LISINOPRIL 5 MG TABLET ONE (08:28)
[2019-05-27] MEDS: LISINOPRIL 5 MG TABLET PO SCH (09:00)
[2019-05-27] MEDS ORDERED: INSULIN GLARGINE 100 UNITS/ML 10 ML VIAL SQ SCH (09:00)
[2019-05-27] MEDS: ENOXAPARIN SODIUM 30 MG/0.3 ML SQ SCH (09:00)
[2019-05-27] MEDS: PANTOPRAZOLE SODIUM 40 MG TABLET.DR PO SCH (09:00)
[2019-05-27] MEDS: LACTATED RINGERS 1000ML 1,000 ML IV SCH (09:31)
[2019-05-27 12:44] LABS: CREATINE KINASE, TOTAL 157 U/L (21-232); MYOGLOBIN 98 ng/mL (10-92); TROPONIN I < 0.04 ng/mL (0.00-0.06)
--- NOTE | 2019-05-27 12:58 | NUR ---
ARRIVAL TO FLOOR VIA ER FROM BED, TRANSFERRED TO BED IN ROOM 229. PT IS AAOX3 DENIES CP DENIES SOB DENIES NV AT THIS TIME O2 VIA NC AT 2LPM. CALL LIGHT WITHIN REACH.
[2019-05-27 13:19] VITALS: BP 178/94
[2019-05-27 15:36] VITALS: BP 143/68
[2019-05-27] MEDS ORDERED: FUROSEMIDE 10 MG/ML 4ML VIAL IV SCH (16:15)
[2019-05-27] MEDS ORDERED: DEXTROSE 50%-WATER 50 ML DISP.SYRIN IV PRN (18:00)
[2019-05-27] MEDS ORDERED: GLUCAGON 1MG KIT 1 MG ML IM PRN (18:00)
[2019-05-27 19:45] VITALS: BP 144/70
[2019-05-27] MEDS ORDERED: MAGNESIUM 2GM PREMIX 50ML 50 ML IV SCH (21:00)
[2019-05-27] MEDS: INSULIN HUMULIN R 100 UNIT/ML 3ML SQ SCH (22:12)
[2019-05-27] MEDS: LORATADINE 10 MG TABLET PO SCH (22:15)
[2019-05-27] MEDS: SIMVASTATIN 20 MG TABLET PO SCH (22:16)
[2019-05-28 00:20] VITALS: BP 115/70
[2019-05-28] MEDS: IPRATROPIUM/ALBUTEROL SULFATE 3 ML SOLUTION IH SCH ×4 (01:14→13:36)
--- NOTE | 2019-05-28 02:15 | NUR ---
PT C/O RIGHT LEG CRAMP, HEAT PAD PLACED ON LEFT CALF, TYLENOL GIVEN, PT STATES THIS HAPPENED THE NIGHT BEFORE WELL.
--- NOTE | 2019-05-28 03:00 | NUR ---
PT BATHED BY CARLOS, PCP, PT NOW ASLEEP, NO LEG PAIN/CRAMP.
[2019-05-28 04:06] VITALS: BP 118/56
[2019-05-28 05:33] LABS: HEMATOCRIT 34.6 % (42-54); MEAN CORPUSCULAR HEMOGLOBIN 30.9 pg (27.0-33.0); MEAN CORPUSCULAR HGB CONC 33.5 g/dL (32.0-36.0); MEAN CORPUSCULAR VOLUME 92.3 fL (79-99); PLATELET COUNT (AUTO) 203 K/uL (130-400); RED BLOOD CELL COUNT(AUTO) 3.75 MIL/uL (4.50-6.20); WHITE BLOOD COUNT (AUTO) 9.4 K/uL (4.8-10.8)
[2019-05-28 05:54] LABS: CREATININE 1.3 mg/dL (0.5-1.5); POTASSIUM 4.1 mmol/L (3.5-5.1)
[2019-05-28] MEDS: INSULIN HUMULIN R 100 UNIT/ML 3ML SQ SCH ×3 (06:53→16:30)
[2019-05-28] MEDS: LEVOTHYROXINE 50 MCG TABLET PO SCH (06:56)
[2019-05-28] MEDS ORDERED: INSULIN GLARGINE 100 UNITS/ML 10 ML VIAL SQ SCH (07:00)
[2019-05-28] MEDS: BUDESONIDE 0.5 MG/2 ML INH IH SCH (07:01)
[2019-05-28 07:56] VITALS: BP 124/60
--- NOTE | 2019-05-28 08:42 | NUR ---
INITIAL. ACF. CALL TO SOFTWARE ASSET MANAGEMENT ANALYST CHART REVIEWED. POS REVIEWED. ACF FROM YESTERDAY CONFIRMED CALL TO MELIDA LOFTON CAREGIVER, PROVIDER- LIVES W PROVIDER, RAMP, SC, WC, WKR, O2, NEB- 21 HRS/WK, STATES SHE CAN TRANSFER MOSTLY INDEPENDENTLY BUT CANNOT AMBULATE- WAS AT [place] LAST ADMIT, OK TO GO BACK AGAIN. ALTERNATE PLAN IS OT HAVE PT GO TO SEE DR. LARA TOMORROW, GET HH SET UP FOR PTx AT HOME THE ABILITY TO TRANSFER NEEDS TO BE PRESERVED, PT EVAL /TREAT ENTERED - ORDER FOR CM DISCHARGE PLAN ENTERED IN ER YESTERDAY CALL TO ROSITA FOSTER. ADVISED OF EF 2018 PRESERVED, NORMAL BNP Addendum: 05/28/19 at 0856 by CARLITO MADDEN RN CM Amended: Links added.
[2019-05-28] MEDS ORDERED: FUROSEMIDE 40 MG TABLET PO SCH (09:00)
[2019-05-28] MEDS: PANTOPRAZOLE SODIUM 40 MG TABLET.DR PO SCH (10:03)
[2019-05-28] MEDS: METFORMIN HCL 500 MG TABLET PO SCH (10:03)
[2019-05-28] MEDS: LISINOPRIL 5 MG TABLET PO SCH (10:03)
[2019-05-28] MEDS: ENOXAPARIN SODIUM 30 MG/0.3 ML SQ SCH (10:04)
[2019-05-28 11:27] VITALS: BP 118/64
[2019-05-28 15:41] VITALS: BP 120/64
--- NOTE | 2019-05-28 18:40 | NUR ---
PT DISCHARGED HOME WITH . PRINTED AND VERBAL DISCHARGE INSTRUCTIONS GIVEN. VERBALIZE UNDERSTANDING. TO FOLLOW UP WITH PCP Hardik SHAY IN AM FOR APPOINTMENT. RETURN TO ER IF WORSE. CONTINUE HOME MEDS. PT HAS NO SOB OR CHEST PAIN. TO CAR VIA WHEELCHAIR IN NO ACUTE DISTRESS
--- NOTE | 2019-05-28 19:24 | NUR ---
Gave patient DC instructions and education and removed IV. Patient stated he understood DC instructions and education.
== END 2019-05-28 18:46 | disposition home or self-care (01) ==
LOC: EDH 13:39 → EDHIP 15:45 → 2AH 05-27 13:30
PROVIDERS: ADMIT Internal Medicine Critical Care Medicine; ATTEND Internal Medicine Critical Care Medicine
DX: R07.89 Other chest pain (principal); R11.2 Nausea with vomiting, unspecified; I10 Essential (primary) hypertension; E11.9 Type 2 diabetes mellitus without complications; J44.9 Chronic obstructive pulmonary disease, unspecified; I69.351 Hemiplegia and hemiparesis following cerebral infarction affecting right dominant side; S22.069A Unspecified fracture of T7-T8 vertebra, initial encounter for closed fracture; G47.33 Obstructive sleep apnea (adult) (pediatric); E78.5 Hyperlipidemia, unspecified; E03.9 Hypothyroidism, unspecified; I25.10 Atherosclerotic heart disease of native coronary artery without angina pectoris; I48.91 Unspecified atrial fibrillation; F03.90 Unspecified dementia, unspecified severity, without behavioral disturbance, psychotic disturbance, mood disturbance, and anxiety; E78.00 Pure hypercholesterolemia, unspecified; Z86.718 Personal history of other venous thrombosis and embolism; Z79.4 Long term (current) use of insulin; Z79.01 Long term (current) use of anticoagulants; Z79.51 Long term (current) use of inhaled steroids; Z79.82 Long term (current) use of aspirin; Z79.899 Other long term (current) drug therapy; X58.XXXA Exposure to other specified factors, initial encounter; Y93.89 Activity, other specified; Y92.89 Other specified places as the place of occurrence of the external cause
CPT/HCPCS: 36415 ×3; 71045 ×2; 71275; 80048 ×2; 80053; 82550 ×4; 82948 ×7; 83735 ×2; 83874 ×3; 83880; 84100; 84443; 84484 ×4; 85025; 85027 ×2; 85378; 85610; 85730; 87804 ×2; 93005 ×4; 94640 ×13; 94664; 96365; 96372 ×2; 96375; 97039 ×2; 97116; 97161; 99284; G0378 ×46; G8978; G8979; G8980; G8981; G8982; G8983; J1650 ×2; J1815 ×2; J1940; J3475; J7030; J7120 ×2; Q9967

== ENCOUNTER 2019-12-04 06:00 | Day surgery (SDC) | payer OTHER ==
[2019-12-02 10:35] LABS: BASOPHILS % (AUTO) 0.4 % (0.0-5.0); EOSINOPHILS % (AUTO) 9.9 % (0.0-8.0); LYMPHOCYTES % (AUTO) 20.2 % (21.0-51.0); MEAN CORPUSCULAR HEMOGLOBIN 30.6 pg (27.0-33.0); MEAN CORPUSCULAR HGB CONC 33.3 g/dL (32.0-36.0); MEAN CORPUSCULAR VOLUME 91.8 fL (79-99); MONOCYTES % (AUTO) 6.4 % (3.0-13.0); NEUTROPHILS % (AUTO) 62.9 % (40.0-77.0); PLATELET COUNT (AUTO) 245 K/uL (130-400); RED BLOOD CELL COUNT(AUTO) 4.25 MIL/uL (4.50-6.20); WHITE BLOOD COUNT (AUTO) 8.2 K/uL (4.8-10.8)
[2019-12-02 10:43] LABS: CREATININE 0.9 mg/dL (0.5-1.5); POTASSIUM 4.3 mmol/L (3.5-5.1)
[2019-12-02 10:47] LABS: INR 0.95 (0.85-1.15); PARTIAL THROMBOPLASTIN TIME 28.2 SEC (26.3-35.5); PROTHROMBIN TIME 10.3 SEC (9.6-11.6)
[2019-12-03 10:12] VITALS: BP 140/72
[~2019-12-04] VITALS: Ht 157.5 cm; Wt 72.9 kg
[~2019-12-04 06:00] MED LIST changes: -AEC81 PO; +ATOR20TA65 PO; -FLUT1AER IH; -SIMV-43 PO; +SODIUM CHLORIDE 0.9% 1000ML 1,000 ML IV SCH
[2019-12-04 06:20] VITALS: BP 187/80
--- NOTE | 2019-12-04 06:20 | NUR ---
PREOP PT ARRIVED VIA W/C IN NO DISTRESS AT THIS TIME. PT ORIENTED TO ROOM AND CALL LIGHT. PT HAS SCRATCHES TO RT KNEE AREA HE REPORTS HE SCRATCHES DUE TO ITCHING. WILL CONTINUE TO MONITOR PT
[2019-12-04] MEDS ORDERED: BUPIVACAINE/PF 0.25% 30ML VIAL IJ ONE (06:28)
[2019-12-04] MEDS ORDERED: LIDOCAINE HCL 1% MDV 50ML VIAL ONE (06:28)
[2019-12-04 07:05] VITALS: BP 172/85
--- NOTE | 2019-12-04 07:25 | NUR ---
REPORT DENZEL SWANSON FROM [facility] REPORTED TO DR PEREZ ON RASH TO KNEE AND ITCHING. MD WILL COME EVAL PT BEFORE PROCEEDING WITH PROCEDURE
--- NOTE | 2019-12-04 07:45 | NUR ---
md dr byrd here t shila pt. will proceed with procedure. ancef 2 gms ordered ivp slowly x1 now.
[2019-12-04] MEDS ORDERED: CEFAZOLIN SODIUM 1 GM VIAL ONE (07:48)
--- NOTE | 2019-12-04 07:55 | NUR ---
recyclable materials collector pt taken to recyclable materials collector by jessika jasmine pt in no distress and ancef given
[2019-12-04 09:05] VITALS: BP 139/78
--- NOTE | 2019-12-04 09:05 | NUR ---
post op received report from jessika jasmine from cardiac catheterization technologist. pt in no distress and dressing to left chest wall with scant pinkish blood stain noted. hand warm to touch with good capillary refill.
[2019-12-04 09:20] VITALS: BP 155/78
[2019-12-04 09:35] VITALS: BP 159/72
[2019-12-04 09:55] VITALS: BP 157/70
== END 2019-12-04 09:55 | disposition home or self-care (01) ==
LOC: DAH 06:00
PROVIDERS: ATTEND Internal Medicine Cardiovascular Disease
DX: R00.2 Palpitations (principal); I45.10 Unspecified right bundle-branch block; I48.0 Paroxysmal atrial fibrillation; I10 Essential (primary) hypertension; E11.9 Type 2 diabetes mellitus without complications; E78.2 Mixed hyperlipidemia; E66.01 Morbid (severe) obesity due to excess calories; K21.9 Gastro-esophageal reflux disease without esophagitis; J44.9 Chronic obstructive pulmonary disease, unspecified; G47.33 Obstructive sleep apnea (adult) (pediatric); Z79.899 Other long term (current) drug therapy; Z79.890 Hormone replacement therapy; Z79.84 Long term (current) use of oral hypoglycemic drugs; Z86.718 Personal history of other venous thrombosis and embolism; Z68.23 Body mass index [BMI] 23.0-23.9, adult; Z98.890 Other specified postprocedural states; Z79.01 Long term (current) use of anticoagulants
CPT/HCPCS: 33285; 36415; 80048; 82948 ×2; 85025; 85610; 85730; 93005; 96374; A4215; A4216; A4221; A4222; A4223 ×3; A4649; A4663; C1764; J0690; J3490 ×2; J7030 ×2

== ENCOUNTER 2022-02-24 10:11 | Emergency (ER) | payer MEDICARE, OTHER ==
[~2022-02-24] VITALS: Ht 152.4 cm; Wt 59.0 kg
[~2022-02-24 10:11] MED LIST changes: -LISI-617 PO; +LISI5TAB21 PO; -SODIUM CHLORIDE 0.9% 1000ML 1,000 ML IV SCH
[2022-02-24] MEDS ORDERED: IOHEXOL 350 MG/ML 100ML INFUS..BTL IV ONE (10:46)
[2022-02-24 10:48] LABS: BASOPHILS % (AUTO) 0.2 % (0.0-5.0); EOSINOPHILS % (AUTO) 9.3 % (0.0-8.0); HEMATOCRIT 40.9 % (42-54); LYMPHOCYTES % (AUTO) 13.3 % (21.0-51.0); MEAN CORPUSCULAR HEMOGLOBIN 29.9 pg (27.0-33.0); MEAN CORPUSCULAR HGB CONC 32.8 g/dL (32.0-36.0); MEAN CORPUSCULAR VOLUME 91.3 fL (79-99); MONOCYTES % (AUTO) 5.1 % (3.0-13.0); NEUTROPHILS % (AUTO) 71.8 % (40.0-77.0); PLATELET COUNT (AUTO) 219 K/uL (130-400); RED BLOOD CELL COUNT(AUTO) 4.48 MIL/uL (4.50-6.20); RED CELL DISTRIBUTION WIDTH 14.4 % (11.0-15.5); WHITE BLOOD COUNT (AUTO) 12.4 K/uL (4.8-10.8)
[2022-02-24] MEDS ORDERED: MORPHINE 2 MG SYG IVP ONE (11:00)
[2022-02-24] MEDS ORDERED: LACTATED RINGERS 1000ML 1,000 ML IV ONE (11:00)
[2022-02-24] MEDS ORDERED: ONDANSETRON 4MG INJ IVP ONE (11:00)
[2022-02-24 11:12] LABS: CREATININE 1.2 mg/dL (0.5-1.5); POTASSIUM 4.9 mmol/L (3.5-5.1)
[2022-02-24 11:17] LABS: ALBUMIN 2.9 g/dL (3.5-5.0); TOTAL PROTEIN, SERUM 7.6 g/dL (6.0-8.3)
[2022-02-24 11:48] LABS: AMYLASE 83 U/L (25-115); LIPASE 124 U/L (114-286)
[2022-02-24] MEDS ORDERED: DICY20TA2 PO (13:10)
[2022-02-24] MEDS ORDERED: OMEP20TA2 PO (13:10)
[2022-02-24 13:31] VITALS: BP 159/74
== END 2022-02-24 14:19 | disposition home or self-care (01) ==
LOC: EDH 10:11
DX: R10.9 Unspecified abdominal pain (principal); E11.9 Type 2 diabetes mellitus without complications; E78.5 Hyperlipidemia, unspecified; E03.9 Hypothyroidism, unspecified; F03.90 Unspecified dementia, unspecified severity, without behavioral disturbance, psychotic disturbance, mood disturbance, and anxiety; I10 Essential (primary) hypertension; I25.10 Atherosclerotic heart disease of native coronary artery without angina pectoris; I48.91 Unspecified atrial fibrillation; J44.9 Chronic obstructive pulmonary disease, unspecified; Z79.4 Long term (current) use of insulin
CPT/HCPCS: 99285; 74177; 96374; 96361; 96375; 82150; 84484; 80053; 83690; 85025; 36415; 93005; J7120; J2405; Q9967

== ENCOUNTER → 2022-04-24 | Outpatient (CLI) | payer MEDICARE ==
[~2022-04-24] MED LIST changes: +DICY20TA2 PO; +OMEP20TA2 PO
== END | disposition home or self-care (01) ==
LOC: RAH 07:05
PROVIDERS: ATTEND Internal Medicine Gastroenterology
DX: R10.9 Unspecified abdominal pain (principal); R63.4 Abnormal weight loss; R68.81 Early satiety
CPT/HCPCS: 78264; A9541

== ENCOUNTER → 2022-04-26 | Outpatient (CLI) | payer MEDICARE | END | disposition home or self-care (01) | LOC: RAH 07:50 | PROVIDERS: ATTEND Internal Medicine Gastroenterology | DX: K21.9 Gastro-esophageal reflux disease without esophagitis (principal); R10.9 Unspecified abdominal pain; R93.3 Abnormal findings on diagnostic imaging of other parts of digestive tract | CPT/HCPCS: 74240 ==

== ENCOUNTER 2022-05-11 01:22 | Emergency (ER) | payer MEDICARE, OTHER ==
[~2022-05-11] VITALS: Ht 160 cm; Wt 63.5 kg
[2022-05-11 05:31] LABS: BASOPHILS % (AUTO) 0.2 % (0.0-5.0); EOSINOPHILS % (AUTO) 30.2 % (0.0-8.0); HEMATOCRIT 30.3 % (42-54); LYMPHOCYTES % (AUTO) 11.2 % (21.0-51.0); MEAN CORPUSCULAR HEMOGLOBIN 31.2 pg (27.0-33.0); MEAN CORPUSCULAR HGB CONC 32.7 g/dL (32.0-36.0); MEAN CORPUSCULAR VOLUME 95.6 fL (79-99); MONOCYTES % (AUTO) 5.1 % (3.0-13.0); NEUTROPHILS % (AUTO) 52.9 % (40.0-77.0); PLATELET COUNT (AUTO) 248 K/uL (130-400); RED BLOOD CELL COUNT(AUTO) 3.17 MIL/uL (4.50-6.20); RED CELL DISTRIBUTION WIDTH 15.1 % (11.0-15.5); WHITE BLOOD COUNT (AUTO) 13.7 K/uL (4.8-10.8)
[2022-05-11 05:48] LABS: ALBUMIN 2.7 g/dL (3.5-5.0); CREATININE 1.2 mg/dL (0.5-1.5)
[2022-05-11 05:52] LABS: POTASSIUM 4.6 mmol/L (3.5-5.1)
[2022-05-11 06:09] VITALS: BP 147/45
[2022-05-11 06:21] LABS: APPEARANCE,URINE CLEAR (CLEAR); BILIRUBIN,URINE NEGATIVE (NEGATIVE); COLOR,URINE LIGHT-YELLOW (YELLOW); GLUCOSE, URINE (UA) >=1000 mg/dL (NEGATIVE); KETONES,URINE NEGATIVE (NEGATIVE); LEUKOCYTE ESTERASE ,URINE NEGATIVE Leu/uL (NEGATIVE); NITRATE,URINE NEGATIVE (NEGATIVE); OCCULT BLOOD,URINE NEGATIVE (NEGATIVE); PROTEIN,URINE 10 mg/dL (NEGATIVE); UROBILINOGEN,URINE 0.2 mg/dL (0.2-1.0)
[2022-05-11 06:24] LABS: HYALINE CASTS, URINE 0-1 /LPF (0-1 /LPF); MUCUS,URINE RARE LPF (None Seen); RBC,URINE 0-1 /HPF (0-1); SQUAMOUS EPITHELIAL CELL,UR RARE /HPF (0-2); WBC,URINE 0-1 /HPF (0-1)
== END 2022-05-11 06:55 | disposition home or self-care (01) ==
LOC: EDH 01:22
DX: S60.221A Contusion of right hand, initial encounter (principal); J44.9 Chronic obstructive pulmonary disease, unspecified; E11.9 Type 2 diabetes mellitus without complications; I10 Essential (primary) hypertension; I95.9 Hypotension, unspecified; E03.9 Hypothyroidism, unspecified; Z86.73 Personal history of transient ischemic attack (TIA), and cerebral infarction without residual deficits; Z79.899 Other long term (current) drug therapy; Z79.84 Long term (current) use of oral hypoglycemic drugs; Z98.890 Other specified postprocedural states; W19.XXXA Unspecified fall, initial encounter; Y93.89 Activity, other specified; Y92.89 Other specified places as the place of occurrence of the external cause; Y99.8 Other external cause status
CPT/HCPCS: 36415; 70450; 73080; 73130; 80053; 81001; 84484; 85025; 93005